=== PATIENT | female | born 1985 | race Caucasian/White ===

== ENCOUNTER 2016-06-15 06:30 | Inpatient (IN) | payer MEDICAID ==
[2016-06-15] MEDS ORDERED: ePHEDrine SULFATE IV PRN (09:17)
[2016-06-15] MEDS ORDERED: MINERAL OIL PO PRN (09:17)
[2016-06-15] MEDS ORDERED: XYLOCAINE 2% INFILTRATI ONE ×2 (09:17→14:41)
[2016-06-15] MEDS ORDERED: BRETHINE SUB-Q PRN (09:17)
[2016-06-15] MEDS ORDERED: ZOFRAN IV PRN ×2 (09:17→15:07)
[2016-06-15] MEDS ORDERED: PITOCin/NS 20 UNIT/1000ML DRIP 20 UNITS/1,000 ML BAG IV SCH (10:00)
[2016-06-15] MEDS ORDERED: PITOCin/NS 30 UNIT/500ML 30 UNITS/500 ML BAG IV SCH (10:00)
[2016-06-15] MEDS: LACTATED RINGERS 1,000 ML IV SCH ×2 (10:45→14:00)
--- NOTE | 2016-06-15 11:15 | History and Physical Report ---
History of Present Illness Date of examination: 06/15/16 Date of admission: 06/15/16 09:18 History of present illness: EDC Confirmation: 06/29/2016 Gestational Age: 7 4/7 weeks Past History : 4 Term Births: 2 Living Children: 2 Para: 2 Spont. 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 of genital herpes: no Partner hx. of genital herpes: no Rash, Viral, or Febrile illness since last LMP? no Varicella/Chicken Pox Status: Immunized TB Risk: no Genetic History Congenital Heart Defect: Mom: no Dad: no Nathan Disease: Mom: no Dad: no Thalassemia Mom: no Dad: no Neural Tube Defect Mom: no Dad: no Down's Syndrome Mom: no Dad: no Shakir-Sachs Mom: no Dad: no Sickle Cell Disease/Trait Mom: no Dad: no Hemophilia Mom: no Dad: no Muscular Dystrophy Mom: no Dad: no Cystic Fibrosis Mom: no Dad: no Tobin Chorea Mom: no Dad: no Mental Retardation Mom: no Dad: no Fragile X Mom: no Dad: no Other Genetic/Chromosomal Disorder Mom: no Dad: no Child w/other defect Mom: no Dad: no Enviromental Exposures Xray Exposure: no Medication, drug, or alcohol use since LMP: no Chemical/Other Exposure: no Exposure to Cat Liter: no Hx of Parvovirus (Fifth Disease): no Occupational Exposure to Children: 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 Denies nausea, vomiting, headache, swelling of legs, abdominal pain, vaginal discharge, vaginal bleeding and contractions. Denies vaginal discharge, incontinence, dysuria, hematuria, urinary frequency, amenorrhea, menorrhagia, abnormal vaginal bleeding, pelvic pain, genital sores, decreased libido, painful periods, painful sex, urinary urgency, hot flashes, vaginal dryness, vaginal itching and vaginal odor. CV Denies chest pains, palpitations, syncope, dyspnea on exertion, orthopnea, PND and peripheral edema. Resp Denies cough, dyspnea at rest, excessive sputum, hemoptysis, wheezing and pleurisy. GI Denies nausea, vomiting, diarrhea, constipation, change in bowel habits, abdominal pain, melena, hematochezia, jaundice, gas/bloating, indigestion/ heartburn, dysphagia and odynophagia. Endo Denies cold intolerance, heat intolerance, polydipsia, polyphagia, polyuria and unusual weight change. Breast Denies left breast lump, right breast lump, nipple discharge, bloody discharge from nipple, breast pain, abnormal mammogram and breast enlargement. MS Denies back pain, joint pain, joint swelling, muscle cramps, muscle weakness, stiffness, arthritis, sciatica, restless legs, leg pain at night and leg pain with exertion. Derm Denies rash, itching, dryness and suspicious lesions. Neuro Denies paralysis, paresthesias, headache, seizures, tremors, vertigo, transient blindness, frequent falls, frequent headaches and difficulty walking. Psych Denies depression, anxiety, irritability and mood swings. Eyes Denies blurring, diplopia, irritation, discharge, vision loss, eye pain and photophobia. ENT Denies earache, ear discharge, tinnitus, decreased hearing, nasal congestion, nosebleeds, sore throat and hoarseness. Allergy Denies urticaria, allergic rash, hay fever and recurrent infections. Heme Denies abnormal bruising, bleeding and enlarged lymph nodes. 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 Vulva/Vagina: No lesions, normal BUS, normal rugae Cervix: No lesions; no cervical motion tenderness Uterus: normal size and position, midline, mobile Adnexae: no masses or tenderness Rectovaginal: no masses or tenderness Past History - Obstetrical History Expected Date of Delivery: 06/29/16 Actual Gestation: 38 Week(s) 0 Day(s) : 4 Para: 2 Hx # Term Pregnancies: 2 Spontaneous Abortions: 1 Number of Living Children: 2 Medications and Allergies Allergies Allergy/AdvReac Type Severity Reaction Status Date / Time No Known Allergies Allergy Unverified 06/15/16 06:33 Active Meds: Active Medications Fentanyl (Sublimaze) 100 mcg IV Q2H PRN PRN Reason: Labor Pain Lactated Ringer's (Lactated Ringers) 1,000 mls @ 125 mls/hr IV DIRECT SARAH Last Admin: 06/15/16 10:45 Dose: 125 mls/hr Oxytocin/Sodium Chloride (Pitocin/Ns 20 Unit/1000ml Drip) 20 units in 1,000 mls @ 125 mls/hr IV DIRECT SARAH Oxytocin/Sodium Chloride (Pitocin/Ns 30 Unit/500ml) 30 units in 500 mls @ 4 mls /hr IV TITR SARAH PRN Reason: Protocol Mineral Oil (Mineral Oil) 30 ml PO QHS PRN PRN Reason: Constipation Ondansetron HCl (Zofran) 4 mg IV Q8H PRN PRN Reason: Nausea And Vomiting - Vital Signs Vital signs: Vital Signs Temp Pulse Resp BP 97.7 F 96 H 16 104/56 06/15/16 06:38 06/15/16 06:38 06/15/16 06:38 06/15/16 06:38 Temp Pulse Resp BP Pulse Ox 98.3 F 78 18 104/56 99 06/15/16 10:20 06/15/16 11:06 06/15/16 10:20 06/15/16 06:38 06/15/16 11:06 - Physical Exam Breasts: Positive: deferred Cardiovascular: Regular rate, Normal S1, Normal S2 Lungs: Positive: Clear to auscultation, Normal air movement Abdomen: Positive: normal appearance, soft, normal bowel sounds. Negative: distention, tenderness Genitourinary (Female): Positive: normal external genitalia, normal perenium Vulva: both: normal Vagina: Positive: normal moisture. Negative: discharge Cervix: Negative: lesion, discharge Uterus: Positive: normal size, normal contour Adnexa: both: normal Anus/Rectum: Positive: normal perianal skin, heme negative. Negative: rectal mass, hemorrhoids Extremities: Positive: edema Deep Tendon Reflex Grade: Normal +2 - Obstetrical FHR: category 1 Uterine Contraction Monitor Mode: External Cervical Dilatation: 3 (cervical chg after walking) Cervical Effacement Percentage: 70 station: -2 Uterine Contraction Frequency (min): q2-3 Uterine Contraction Pattern: Regular Uterine Contraction Intensity: Moderate Results All other labs normal. Laboratory Data-Patient Name: ERIN BLACKMON Test Date Result Blood Type 12/14/2015 O Rh 12/14/2015 Positive Antibody Screen negative Rubella 12/14/2015 IMMUNE Serology (RPR) 05/30/2016 negative HBsAg 12/14/2015 Negative Hemoglobin 03/14/2016 10.4 Hematocrit 03/14/2016 31.4 Platelets 12/14/2015 251 [id number] Chlamydia DNA 05/30/2016 Negative GC DNA/Culture 05/30/2016 negative Urine Culture 02/06/2016 Final report Group B Strep cult negative PAP HIV 05/30/2016 AFP/Quad Screen Glucola Test 3hr GTT (Fasting) 1 hr 2 hr 3 hr [facility]-Patient Name:ERIN BLACKMON Test Date Result Varicella Ab Sickle Cell 12/14/2015 Negative PPD Fibronectin Cystic Fibrosis Parvovirus TSH Free T4 Hepatitis C ALT AST Uric Acid Creatinine 24 hr Urine Protein LIBBY Assessment and Plan 30yo @ 38 weeks in labor SVE chg after walking 3,70,-2 Ctx Q2-3 GBS negative Orders in EMR.
--- NOTE | 2016-06-15 11:21 | Progress Note ---
Assessment and Plan Pt tolerating labor well SVE 5,70,-2 AROM ISE applied Anticipate delivery Subjective - Subjective Date of service: 06/15/16 (pt c/o feeling pressure) Interval history: EDC Confirmation: 06/29/2016 Gestational Age: 7 4/7 weeks Past History : 4 Term Births: 2 Living Children: 2 Para: 2 Spont. 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 of genital herpes: no Partner hx. of genital herpes: no Rash, Viral, or Febrile illness since last LMP? no Varicella/Chicken Pox Status: Immunized TB Risk: no Genetic History Congenital Heart Defect: Mom: no Dad: no Nathan Disease: Mom: no Dad: no Thalassemia Mom: no Dad: no Neural Tube Defect Mom: no Dad: no Down's Syndrome Mom: no Dad: no Shakir-Sachs Mom: no Dad: no Sickle Cell Disease/Trait Mom: no Dad: no Hemophilia Mom: no Dad: no Muscular Dystrophy Mom: no Dad: no Cystic Fibrosis Mom: no Dad: no Cotton Chorea Mom: no Dad: no Mental Retardation Mom: no Dad: no Fragile X Mom: no Dad: no Other Genetic/Chromosomal Disorder Mom: no Dad: no Child w/other defect Mom: no Dad: no Enviromental Exposures Xray Exposure: no Medication, drug, or alcohol use since LMP: no Chemical/Other Exposure: no Exposure to Cat Liter: no Hx of Parvovirus (Fifth Disease): no Occupational Exposure to Children: 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 Denies nausea, vomiting, headache, swelling of legs, abdominal pain, vaginal discharge, vaginal bleeding and contractions. Denies vaginal discharge, incontinence, dysuria, hematuria, urinary frequency, amenorrhea, menorrhagia, abnormal vaginal bleeding, pelvic pain, genital sores, decreased libido, painful periods, painful sex, urinary urgency, hot flashes, vaginal dryness, vaginal itching and vaginal odor. CV Denies chest pains, palpitations, syncope, dyspnea on exertion, orthopnea, PND and peripheral edema. Resp Denies cough, dyspnea at rest, excessive sputum, hemoptysis, wheezing and pleurisy. GI Denies nausea, vomiting, diarrhea, constipation, change in bowel habits, abdominal pain, melena, hematochezia, jaundice, gas/bloating, indigestion/ heartburn, dysphagia and odynophagia. Endo Denies cold intolerance, heat intolerance, polydipsia, polyphagia, polyuria and unusual weight change. Breast Denies left breast lump, right breast lump, nipple discharge, bloody discharge from nipple, breast pain, abnormal mammogram and breast enlargement. MS Denies back pain, joint pain, joint swelling, muscle cramps, muscle weakness, stiffness, arthritis, sciatica, restless legs, leg pain at night and leg pain with exertion. Derm Denies rash, itching, dryness and suspicious lesions. Neuro Denies paralysis, paresthesias, headache, seizures, tremors, vertigo, transient blindness, frequent falls, frequent headaches and difficulty walking. Psych Denies depression, anxiety, irritability and mood swings. Eyes Denies blurring, diplopia, irritation, discharge, vision loss, eye pain and photophobia. ENT Denies earache, ear discharge, tinnitus, decreased hearing, nasal congestion, nosebleeds, sore throat and hoarseness. Allergy Denies urticaria, allergic rash, hay fever and recurrent infections. Heme Denies abnormal bruising, bleeding and enlarged lymph nodes. PHYSICAL EXAM HEENT: PERRLA, normal conjunctiva, external nose and nasal mucosa normal, oropharynx clear Neck/Thyroid: supple, thyroid normal Skin no significant abnormal lesions or rashes Chest: respiratory effort normal, clear to auscultation Breasts: normal without skin changes or masses CV: regular, normal S1-S2, no murmur, no rub, no gallop Abdomen: normal bowel sounds, soft, nontender, no HSM Musculoskeletal: grossly normal ROM in joints, no joint tenderness or muscle weakness Neuro: grossly normal DTRs, sensation, strength, cranial nerves Extremities: no clubbing, cyanosis, or edema [employer]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 Vulva/Vagina: No lesions, normal BUS, normal rugae Cervix: No lesions; no cervical motion tenderness Uterus: normal size and position, midline, mobile Adnexae: no masses or tenderness Rectovaginal: no masses or tenderness Patient reports: movement normal Objective - Vital Signs Vital Signs: Vital Signs - 12hr 06/15/16 06/15/16 06/15/16 06:38 06:48 06:53 Temperature 97.7 F Pulse Rate 73 76 Pulse Rate [ 96 H From Monitor] Respiratory 16 Rate Blood Pressure 104/56 [Left Arm] O2 Sat by Pulse 97 96 Oximetry 06/15/16 06/15/16 06/15/16 06:58 07:03 07:08 Temperature Pulse Rate 77 87 78 Pulse Rate [ From Monitor] Respiratory Rate Blood Pressure [Left Arm] O2 Sat by Pulse 96 97 97 Oximetry 06/15/16 06/15/16 06/15/16 07:13 07:18 07:22 Temperature Pulse Rate 97 H 69 85 Pulse Rate [ From Monitor] Respiratory Rate Blood Pressure [Left Arm] O2 Sat by Pulse 96 97 82 L Oximetry 06/15/16 06/15/16 06/15/16 07:23 09:34 09:39 Temperature Pulse Rate 90 75 82 Pulse Rate [ From Monitor] Respiratory Rate Blood Pressure [Left Arm] O2 Sat by Pulse 97 99 98 Oximetry 06/15/16 06/15/16 06/15/16 09:44 09:50 09:54 Temperature Pulse Rate 82 70 77 Pulse Rate [ From Monitor] Respiratory Rate Blood Pressure [Left Arm] O2 Sat by Pulse 98 98 98 Oximetry 06/15/16 06/15/16 06/15/16 09:59 10:04 10:10 Temperature Pulse Rate 74 73 78 Pulse Rate [ From Monitor] Respiratory Rate Blood Pressure [Left Arm] O2 Sat by Pulse 99 98 99 Oximetry 06/15/16 06/15/16 06/15/16 10:15 10:20 10:25 Temperature 98.3 F Pulse Rate 86 74 76 Pulse Rate [ From Monitor] Respiratory 18 Rate Blood Pressure [Left Arm] O2 Sat by Pulse 98 98 98 Oximetry 06/15/16 06/15/16 06/15/16 10:30 10:35 10:41 Temperature Pulse Rate 80 80 72 Pulse Rate [ From Monitor] Respiratory Rate Blood Pressure [Left Arm] O2 Sat by Pulse 99 99 97 Oximetry 06/15/16 06/15/16 06/15/16 10:45 10:51 10:56 Temperature Pulse Rate 75 79 89 Pulse Rate [ From Monitor] Respiratory Rate Blood Pressure [Left Arm] O2 Sat by Pulse 98 97 98 Oximetry 06/15/16 06/15/16 06/15/16 11:01 11:06 11:11 Temperature Pulse Rate 78 78 85 Pulse Rate [ From Monitor] Respiratory Rate Blood Pressure [Left Arm] O2 Sat by Pulse 99 99 98 Oximetry - Exam Breasts: deferred Cardiovascular: Regular rate Lungs: Normal air movement Abdomen: Present: normal appearance, soft. Absent: distention, tenderness Uterus: Present: normal FHR: auscultation normal, category 1 Uterine Contraction Monitor Mode: Internal Cervical Dilatation: 5 (AROM clear) Cervical Effacement Percentage: 70 (ISE applied) station: -2 Uterine Contraction Pattern: Regular Uterine Contraction Intensity: Moderate Extremities: edema Deep Tendon Reflex Grade: Normal +2
[2016-06-15 11:31] LABS: Hematocrit 27.2 % (30.3-42.9); Hemoglobin 8.9 gm/dl (10.1-14.3); Mean Corpuscular HGB Conc 33 % (30-34); Mean Corpuscular Hemoglobin 28 pg (28-32); Mean Corpuscular Volume 84 fl (79-97); Platelet Count 185 K/mm3 (140-440); Red Blood Count 3.22 M/mm3 (3.65-5.03); Red Cell Distribution Width 14.1 % (13.2-15.2); White Blood Count 12.3 K/mm3 (4.5-11.0)
[2016-06-15] MEDS: SUBLIMAZE IV PRN ×2 (11:38→13:55)
--- NOTE | 2016-06-15 13:45 | Event Note ---
Date: 06/15/16 (pt req pain medication) Exam unchanged despite adequate ctx. Will bolus for epidural. Re-eval after pt is comfortable.
[2016-06-15] MEDS ORDERED: ePHEDrine SULFATE ONE (14:26)
[2016-06-15] MEDS ORDERED: PHENERGAN PR PRN (15:07)
[2016-06-15] MEDS ORDERED: DULCOLAX PR PRN (15:07)
[2016-06-15] MEDS ORDERED: NORCO 5/325 PO PRN (15:07)
[2016-06-15] MEDS ORDERED: MILK OF MAGNESIA PO PRN (15:07)
[2016-06-15] MEDS ORDERED: TYLENOL PO PRN (15:07)
[2016-06-15] MEDS ORDERED: BENADRYL PO PRN (15:07)
[2016-06-15] MEDS ORDERED: DERMOPLAST TP PRN (15:07)
[2016-06-15] MEDS ORDERED: PHENERGAN PO PRN (15:07)
[2016-06-15] MEDS ORDERED: LANSINOH TP PRN (15:07)
[2016-06-15] MEDS ORDERED: TUCKS PAD TP PRN (15:07)
[2016-06-15] MEDS ORDERED: SODIUM CHLORIDE FLUSH SYRINGE 10 ML IV NR (16:00)
--- NOTE | 2016-06-15 16:16 | Procedure Note ---
OB Delivery Note - Delivery Date of Delivery: 06/15/16 Dishroom Attendant: SANJUANA CHISHOLM Estimated blood loss: 300cc - Vaginal Delivery presentation: vertex Delivery position: OA Intrapartum events: none Delivery induction: none Delivery augmentation: pitocin Delivery monitor: internal FHT, internal uterine Route of delivery: Delivery placenta: spontaneous Delivery cord: 3 umbilical vessels Episiotomy: none Delivery laceration: 1st degree (vaginal floor) Delivery repair: vicryl Anesthesia: local Delivery comments: live born male over intact perineum, baby to mom's abdomen skin to skin. Cord blood obtained. Placenta and membrane del complete and intact, 3 vessel cord. 1st degree laceration vaginal flood @ the introitus. Repaired with 2-0 vicryl over Lidocaine. 8/9, EBL 300, Pit IVFs, Wgt 7-3 Mom OOB to shower. Mom and baby remain LDR stable. - A at 1 minute: 8 at 5 minutes: 9 Gender: Male (wgt 7-3)
--- NOTE | 2016-06-15 18:45 | Event Note ---
Date: 06/15/16 (pt held in L&D) Unable to move pt to M/B. Pt stable doing well. Dinner taken. Baby to breast several times.
[2016-06-15] MEDS: COLACE PO SCH (21:49)
[2016-06-15] MEDS: MOTRIN PO SCH ×2 (21:49→23:25)
[2016-06-16] MEDS: MOTRIN PO SCH ×2 (04:55→12:17)
[2016-06-16 05:59] LABS: Hematocrit 28.6 % (30.3-42.9); Hemoglobin 9.4 gm/dl (10.1-14.3)
[2016-06-16] MEDS ORDERED: M-M-R II VACCINE SUB-Q ONE (06:00)
[2016-06-16] MEDS ORDERED: BOOSTRIX IM ONE (06:00)
--- NOTE | 2016-06-16 09:06 | Discharge Summary ---
Providers - Providers Date of Admission: 06/15/16 09:18 Date of discharge: 06/16/16 (pt requests discharge) Attending physician: XIMENA DAWN Primary care physician: XIMENA DAWN Hospitalization Reason for admission: active labor Delivery: Episiotomy: none Laceration: 1st degree Incision: dry, intact Other procedures: none complications: none Discharge diagnosis: IUP at term delivered [place] baby: male Hospital course: uncomplicated vaginal delivery Pt requesting to be discharged today. VSS ff below umb Lochia small Perineum slight swelling intact H&H 9.4/28.6 drop r/t blood loss from delivery Pt is asymptomatic Doing well s/p vag del P: d/c today with instructions. RX provided. Condition at discharge: Good Disposition: DISCHARGED TO HOME OR SELFCARE - Discharge Diagnoses (1) Spontaneous vaginal delivery Status: Acute Comment: rto 4 weeks for PP care Plan - Discharge Medications Prescriptions: Ibuprofen [Motrin 800 MG tab] 800 mg PO TID PRN #30 tablet PRN Reason: Pain Lidocain2.5%/Prilocai2.5% [Emla] 5 gm TP PRN #1 tube - Provider Discharge Summary Activity: routine, no sex for 6 weeks, no heavy lifting 4 weeks, no strenuous exercise Diet: routine Instructions: routine Additional instructions: [] Smoking cessation referral if applicable(refer to patient education folder for contact #) [] Refer to [facility] Booklet Call your doctor immediately for: * Fever > 100.5 * Heavy vaginal bleeding ( >1 pad per hour) * Severe persistent headache * Shortness of breath * Reddened, hot, painful area to leg or breast * Drainage or odor from incision. * Keep incision clean and dry at all times and follow doctor's instructions regarding bathing/showering - Follow up plan Follow up: XIMENA DAWN MD [Primary Care Provider] - 7 Days (Congratulations! Please call [phone] to schedule your son's circumcision in 1 week and your visit in 4 weeks. please take medications as prescribed. Call with concerns.)
[2016-06-16] MEDS: COLACE PO SCH (10:15)
[2016-06-16] MEDS ORDERED: FLUARIX QUAD 2016-2017(36 MOS+) IM ONE (12:00)
[2016-06-16 17:54] VITALS: BP 100/64
== END 2016-06-16 17:00 | disposition home or self-care (01) | DRG 775 ==
LOC: TRG 06:30 → LD 09:18 → OB 19:06
PROVIDERS: ADMIT Obstetrics & Gynecology; ATTEND Obstetrics & Gynecology
PROC: 10E0XZZ Delivery of Products of Conception, External Approach (ICD-10-PCS; principal; 2016-06-15)
PROC: 0HQ9XZZ Repair Perineum Skin, External Approach (ICD-10-PCS; 2016-06-15)
PROC: 10907ZC Drainage of Amniotic Fluid, Therapeutic from Products of Conception, Via Natural or Artificial Opening (ICD-10-PCS; 2016-06-15)
DX: O70.0 First degree perineal laceration during delivery (principal); Z3A.38 38 weeks gestation of pregnancy; Z37.0 Single live birth
CPT/HCPCS: 36415; 85014; 85018; 85027; 86592; 86850; 86900; 86901; 90471; 90686; 90715; 99211; G0008; G0463; J2405; J2590; J3010; J7120